=== PATIENT | male | born 1970 | race Caucasian/White ===

== ENCOUNTER 2017-11-17 12:53 | Emergency (ER) | payer MEDICAID ==
[2017-11-17 13:14] VITALS: BP 139/79
[2017-11-17] MEDS ORDERED: CLINDAMYCIN 150 MG CAPSULE PO STA (15:10)
[2017-11-17] MEDS ORDERED: BUPIVACAINE 0.5% PF 10 ML VIAL SUBQ STA (15:10)
--- NOTE | 2017-11-17 15:48 | ED Physician Documentation ---
PD HPI HEENT - Stated complaint Stated Complaint: MOUTH PX/FACIAL SWELLING - Chief complaint Chief Complaint: Heent - History obtained from History obtained from: Patient - History of Present Illness Timing - onset: How many days ago (3) Timing - details: Gradual onset, Still present Location: Tooth, Mouth Associated symptoms: Facial swelling. No: Fever Similar symptoms before: Work up / diagnostics, Treatment Recently seen: Not recently seen - Additional information Additional information: Patient is a 47 year old male with a history of multiple dental caries who is presenting to the emergency department for dental pain and facial swelling. Patient states that the symptoms have been going on for the last couple of days and have become progressively worse. Patient took ibuprofen for pain but it has not helped. Review of Systems Ten Systems: 10 systems reviewed and negative Constitutional: denies: Fever, Chills Throat: reports: Dental pain / toothache PD PAST MEDICAL HISTORY - Past Medical History Past Medical History: Yes Cardiovascular: Hypertension Respiratory: None Endocrine/Autoimmune: HyPOthyroidism GI: None : None HEENT: None, Chronic hearing loss Psych: None Musculoskeletal: None Derm: None - Past Surgical History Past Surgical History: Yes General: Appendectomy - Present Medications Home Medications: Ambulatory Orders Medication Instructions Recorded Confirmed Levothyroxine [Synthroid] 200 mcg PO DAILY 09/05/14 03/01/16 Chlorhexidine Gluconate 15 ml MM Q6HR #1 mouthwash 11/17/17 Clindamycin HCl [Clindamycin 300MG 300 mg PO Q6H 7 Days capsule 11/17/17 CAP] - Allergies Allergies/Adverse Reactions: Allergies Allergy/AdvReac Type Severity Reaction Status Date / Time No Known Drug Allergies Allergy Verified 11/17/17 13:14 - Social History Does the pt smoke?: Yes Smoking Status: Current every day smoker Does the pt drink ETOH?: No Does the pt have substance abuse?: No - Immunizations Immunizations are current?: Yes - POLST Patient has POLST: No PD ED PE NORMAL - Vitals Vital signs reviewed: Yes - General General: Alert and oriented X 3 - Neck Neck: Supple, no meningeal sign - Cardiac Cardiac: RRR - Respiratory Respiratory: No respiratory distress - Extremities Extremities: No deformity PD ED PE EXPANDED - General General: Alert, In Pain - HEENT HEENT: Dental decay, Dental TTP. No: Dental trauma, Dental abscess HEENT Visual: 1 - tenderness (tenderness but no drainable abscess or fluid collection) 2 - tenderness Results - Vitals Vitals: Vital Signs - 24 hr 11/17/17 13:08 Temperature 36.5 C Heart Rate 83 Respiratory 20 Rate Blood Pressure 139/79 H O2 Saturation 98 Oxygen O2 Source Room air Procedures - Regional nerve block Nerve block site: Post superior alveolar Right / left: Left Nerve block anesthesia: Marcaine 0.5% Nerve block aftercare: Excellent anesthesia, No complications PD MEDICAL DECISION MAKING - ED course Complexity details: reviewed old records, reviewed results, re-evaluated patient , considered differential, d/w patient ED course: patient was seen and examined at bedside. superior alveolar nerve block was performed with good relief. Patient was treated with clindamycin. Patient required no further work up and was stable for discharge with outpatient follow up. - Sepsis Event Vital Signs: Vital Signs - 24 hr 11/17/17 13:08 Temperature 36.5 C Heart Rate 83 Respiratory 20 Rate Blood Pressure 139/79 H O2 Saturation 98 Oxygen O2 Source Room air Departure - Departure Disposition: 01 Home, Self Care Clinical Impression: Dental abscess Condition: Good Instructions: ED Dental Abscess Facial Cellulitis Follow-Up: primary,care provider [Other] Prescriptions: Chlorhexidine Gluconate 15 ml MM Q6HR #1 mouthwash Clindamycin HCl [Clindamycin 300MG CAP] 300 mg PO Q6H 7 Days capsule Comments: Your symptoms today are being caused by dental abscess/infection. you will need to take an oral antibiotic and do an oral rinse 4 times a day. Ultimately you will need to follow up with your dentist to get your teeth pulled. You may return to the emergency department for worsening sympotms. you can take motrin 600mg and tylenol 1000mg as needed for pain.
== END 2017-11-17 15:59 | disposition home or self-care (01) ==
LOC: ED 12:53
DX: K04.7 Periapical abscess without sinus (principal); I10 Essential (primary) hypertension; E03.9 Hypothyroidism, unspecified; F17.200 Nicotine dependence, unspecified, uncomplicated
CPT/HCPCS: 64450; 99283; A9270

== ENCOUNTER 2018-11-03 05:35 | Emergency (ER) | payer MEDICAID ==
--- NOTE | 2018-11-03 05:38 | ED Physician Documentation ---
PD HPI CHEST PAIN - Stated complaint Stated Complaint: CHEST PAIN - History obtained from History obtained from: Patient, Family - History of Present Illness Timing - onset: Enter time (03:00), Today Timing - onset during: Sleep Timing - details: Abrupt onset, Constant, Waxing and waning Pain level max: 10 Pain level now: 10 Quality: Pain Location: Epigastric Radiation: Other (RUQ, back) Improved by: Nothing Worsened by: Other (no exacerbating factors) Associated symptoms: Diaphoresis. No: Shortness of air, Nausea, Vomiting Similar symptoms before: Diagnosis (similar to previous biliary colic, first (and only other) episode was few months ago, evaluated at [facility] ED and f/u outpatient with surgeon, was given option for surgery but recommended against surgery based on only first episode at the time) Recently seen: Not recently seen Review of Systems Constitutional: reports: Sweats. denies: Fever, Chills Cardiac: reports: Reviewed and negative Respiratory: reports: Reviewed and negative GI: reports: Abdominal Pain. denies: Abdominal Swelling, Nausea, Vomiting, Constipation, Diarrhea : denies: Dysuria, Frequency Musculoskeletal: denies: Back pain PD PAST MEDICAL HISTORY - Past Medical History Cardiovascular: Hypertension Respiratory: None Endocrine/Autoimmune: HyPOthyroidism GI: None : None HEENT: None, Chronic hearing loss Psych: None Musculoskeletal: None Derm: None - Past Surgical History Past Surgical History: Yes General: Appendectomy - Present Medications Home Medications: Ambulatory Orders Medication Instructions Recorded Confirmed Ibuprofen 600 mg PO Q6HR PRN #20 tablet 11/03/18 Levothyroxine Sodium 1 tab PO DAILY 11/03/18 11/03/18 Levothyroxine Sodium 1 tab PO DAILY 11/03/18 11/03/18 Oxycodone HCl/Acetaminophen 1 - 2 each PO Q6H PRN #14 tablet 11/03/18 [Percocet 5-325 mg Tablet] - Allergies Allergies/Adverse Reactions: Allergies Allergy/AdvReac Type Severity Reaction Status Date / Time No Known Drug Allergies Allergy Verified 11/03/18 05:44 - Social History Does the pt smoke?: Yes Smoking Status: Current every day smoker Does the pt drink ETOH?: No Does the pt have substance abuse?: No - Immunizations Immunizations are current?: Yes - POLST Patient has POLST: No PD ED PE NORMAL - Vitals Vital signs reviewed: Yes - General General: Alert and oriented X 3, Well developed/nourished, Other (obvious severe painful distress, diaphoretic) - HEENT HEENT: Moist mucous membranes - Cardiac Cardiac: RRR, No murmur - Respiratory Respiratory: No respiratory distress, Clear bilaterally - Abdomen Abdomen: Soft, Non distended, Other (mild TTP RUQ without rebound or guarding) - Derm Derm: Normal color, Warm and dry - Extremities Extremities: No edema Results - Vitals Vitals: Vital Signs - 24 hr 11/03/18 11/03/18 11/03/18 05:35 06:02 06:24 Temperature 36.9 C Heart Rate 99 91 86 Respiratory 14 12 14 Rate Blood Pressure 157/110 H 170/109 H 169/108 H Blood Pressure 157/110 H [Left] Blood Pressure 174/116 H [Right] O2 Saturation 100 100 11/03/18 11/03/18 06:51 08:01 Temperature 36.4 C L Heart Rate 93 98 Respiratory 22 16 Rate Blood Pressure 177/109 H 133/97 H Blood Pressure [Left] Blood Pressure [Right] O2 Saturation 98 95 Oxygen O2 Source Room air - Labs Labs: Laboratory Tests 11/03/18 11/03/18 11/03/18 05:49 05:49 05:49 WBC 10.4 RBC 4.53 L Hgb 13.6 L Hct 42.1 MCV 92.9 MCH 30.0 MCHC 32.3 RDW 13.7 Plt Count 236 MPV 9.7 Neut # (Auto) 7.4 H Lymph # (Auto) 1.8 [place] # (Auto) 0.9 Eos # (Auto) 0.2 Baso # (Auto) 0.0 Absolute Nucleated RBC 0.00 Nucleated RBC % 0.0 Sodium 138 Potassium 4.1 Chloride 104 Carbon Dioxide 24 Anion Gap 10.0 BUN 23 H Creatinine 1.1 Estimated GFR (MDRD) 71 L Glucose 138 H Calcium 9.3 Total Bilirubin 0.7 AST 46 H ALT 42 Alkaline Phosphatase 68 Troponin I < 0.04 Total Protein 7.3 Albumin 4.1 Globulin 3.2 Albumin/Globulin Ratio 1.3 Amylase 27 L Lipase 28 - Rads (name of study) RUQ US Radiology: Prelim report reviewed, See rad report PD MEDICAL DECISION MAKING - ED course Complexity details: reviewed results, re-evaluated patient, considered differential, d/w patient ED course: inadequate relief with 1mg IV Dilaudid, but complete symptom resolution with second dose 1mg dilaudid IV given with IV toradol. On reevaluation after US and serum tests resulted, patient is asleep, arousable to voice/tactile, reports excellent symptom relief and comfortable with d/c . ambulating without assistance at discharge. Departure - Departure Disposition: 01 Home, Self Care Clinical Impression: Biliary colic Condition: Good Health Concerns: abdominal pain, gallstones Plan of Treatment: follow up with general surgeon; pain medication prescription as directed Care Goals: resolution of symptoms Assessment: See diagnosis Instructions: ED Gallstone W Biliary Colic Follow-Up: Anderson Dias MD [Provider Admit Priv/Credential] - Prescriptions: Ibuprofen 600 mg PO Q6HR PRN #20 tablet PRN Reason: Pain Oxycodone HCl/Acetaminophen [Percocet 5-325 mg Tablet] 1 - 2 each PO Q6H PRN #14 tablet PRN Reason: pain Discharge Date/Time: 11/03/18 08:27
[2018-11-03] MEDS ORDERED: HYDROmorphone 1 MG/ML CARPUJECT IVP STA ×2 (05:56→06:23)
[2018-11-03] MEDS ORDERED: SODIUM CHLORIDE 0.9% 1,000 ML IV ONE (06:04)
[2018-11-03] MEDS ORDERED: SODIUM CHLORIDE 0.9% 1,000 ML IV STA (06:09)
[2018-11-03 06:15] LABS: BASOPHILS % (AUTO) 0.4 %; EOSINOPHILS # (AUTO) 0.2 10^3/uL (0.0-0.7); EOSINOPHILS % (AUTO) 2.3 %; HGB - HEMOGLOBIN 13.6 g/dL (14.0-18.0); LYMPHOCYTES # (AUTO) 1.8 10^3/uL (1.5-3.5); LYMPHOCYTES % (AUTO) 17.3 %; MEAN CORPUSCULAR HGB CONC 32.3 g/dL (32.0-36.0); MEAN CORPUSCULAR VOLUME 92.9 fL (80.0-94.0); MEAN PLATELET VOLUME 9.7 fL (7.4-11.4); MONOCYTES # (AUTO) 0.9 10^3/uL (0.0-1.0); MONOCYTES % (AUTO) 8.3 %; NEUTROPHILS # (AUTO) 7.4 10^3/uL (1.5-6.6); NEUTROPHILS % (AUTO) 71.5 %; PLT - PLATELET COUNT 236 10^3/uL (130-450); RED BLOOD COUNT 4.53 10^6/uL (4.70-6.10); RED CELL DISTRIBUTION WIDTH 13.7 % (12.0-15.0); WHITE BLOOD COUNT 10.4 x10^3/uL (4.8-10.8)
[2018-11-03] MEDS ORDERED: KETOROLAC 30 MG/ML VIAL IVP STA (06:23)
[2018-11-03 06:29] LABS: ALBUMIN 4.1 g/dL (3.2-5.5); ALBUMIN/GLOBULIN RATIO 1.3 (1.0-2.2); BILIRUBIN,TOTAL 0.7 mg/dL (0.2-1.0); CALCIUM 9.3 mg/dL (8.5-10.3); CREATININE 1.1 mg/dL (0.6-1.2); TOTAL PROTEIN 7.3 g/dL (6.7-8.2)
--- NOTE | 2018-11-03 06:30 | XRAY Report ---
Reason: cough, dyspnea Procedure Date: 11/03/2018 Accession Number: [id number] / [id number] Procedure: XR - Chest 2 View X-Ray CPT Code: 59378 FULL RESULT: EXAM: CHEST RADIOGRAPHY EXAM DATE: 11/03/2018 06:24 AM. CLINICAL HISTORY: Cough, dyspnea. COMPARISON: CHEST 2 VIEW PA/LAT 06/17/2013 7:10 AM. TECHNIQUE: 2 views. FINDINGS: Lungs/Pleura: No focal opacities evident. No pleural effusion. No pneumothorax. Normal volumes. Mediastinum: Heart and mediastinal contours are unremarkable. Other: None. IMPRESSION: Normal 2-view chest radiography. RADIA
--- NOTE | 2018-11-03 07:33 | Ultrasound Report ---
Reason: abd. pain Procedure Date: 11/03/2018 Accession Number: [id number] / [id number] Procedure: US - Abdomen Limited CPT Code: FULL RESULT: EXAM: ABDOMEN ULTRASOUND LIMITED, RUQ EXAM DATE: 11/03/2018 07:20 AM. CLINICAL HISTORY: Right upper quadrant pain. COMPARISON: None. TECHNIQUE: Real-time scanning was performed with static images obtained. FINDINGS: Liver: The liver is diffusely echogenic in appearance suggesting fibrofatty infiltration. No suspicious lesions or masses are identified. The liver measures 16.9 cm. Main portal vein flow: Hepatopetal. Gallbladder: A nonmobile gallstone is seen in the gallbladder neck region. Gallbladder is slightly distended and thick-walled in appearance. There is trace pericholecystic fluid. Sonographic Anthony sign is indeterminate as patient is medicated. Biliary System: CBD measures 5 mm. No intrahepatic or extrahepatic ductal dilatation. Other: Limited visualization of the right kidney demonstrates a few scattered cysts, largest measuring 6.3 cm in the lower pole. No hydronephrosis is seen. IMPRESSION: 1. Findings suspicious for cholecystitis with nonmobile gallstone in the gallbladder neck region, borderline gallbladder wall thickening, and trace pericholecystic fluid. No biliary dilation. 2. Fatty liver. 3. Left renal cyst. RADIA
[2018-11-03 08:05] VITALS: BP 133/97
== END 2018-11-03 08:27 | disposition home or self-care (01) ==
LOC: ED 05:35
DX: K80.20 Calculus of gallbladder without cholecystitis without obstruction (principal); K76.0 Fatty (change of) liver, not elsewhere classified; N28.1 Cyst of kidney, acquired; I10 Essential (primary) hypertension; F17.200 Nicotine dependence, unspecified, uncomplicated
CPT/HCPCS: 36415; 71046; 76705; 80053; 82150; 83690; 84484; 85025; 93005; 96374; 96375; 96376; 99283; 99284; J1170

== ENCOUNTER 2019-03-27 08:32 | Outpatient (CLI) | payer MEDICAID ==
[2019-03-27 09:52] LABS: THYROID STIMULATING HORMONE 0.91 uIU/mL (0.34-5.60)
[2019-03-27 09:54] LABS: FREE T4 (FREE THYROXINE) 1.13 ng/dL (0.58-1.64)
[2019-03-27 09:58] LABS: PROLACTIN 6.58 ng/mL
== END 2019-03-27 08:33 | disposition home or self-care (01) ==
LOC: LAB 08:32
PROVIDERS: ATTEND Internal Medicine Endocrinology, Diabetes & Metabolism
DX: E03.8 Other specified hypothyroidism (principal); D35.2 Benign neoplasm of pituitary gland; E29.1 Testicular hypofunction
CPT/HCPCS: 36415; 84146; 84403; 84439; 84443

== ENCOUNTER 2019-04-15 16:23 | Outpatient (CLI) | payer MEDICAID ==
[~2019-04-15 16:23] MED LIST: GADOBUTROL 15 MMOL/15 ML VIAL ONE
[2019-04-15] MEDS ORDERED: GADOBUTROL 15 MMOL/15 ML VIAL ONE (17:12)
[2019-04-15] MEDS ORDERED: GADOBUTROL 15 MMOL/15 ML VIAL IVP ONE (17:41)
--- NOTE | 2019-04-17 11:14 | MRI Report ---
Reason: PITUITARY ADENOMA Procedure Date: 04/15/2019 Accession Number: [id number] / [id number] Procedure: MRI - Brain W/WO CPT Code: Final Report FULL RESULT: EXAM: MRI BRAIN WITHOUT AND WITH CONTRAST EXAM DATE: 04/15/2019 06:03 PM. CLINICAL HISTORY: History of pituitary adenoma, follow-up requested. COMPARISON: PITUITARY W/WO 07/14/2013 3:49 PM PITUITARY 11/22/2006 12:16 PM. TECHNIQUE: Multiplanar, multisequence T1-weighted and fluid-sensitive MR sequences of the brain were performed before and after administration of intravenous contrast. Sequences optimized for brain and pituitary evaluation. Other: None. IV Contrast: Without and with 12 mL Gadavist. FINDINGS: Brain Volume: Normal for age. Parenchyma: No acute hemorrhage, mass, or infarct. 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 Otherwise, stable unremarkable appearance of the brain. Ventricles/Cisterns: No hydrocephalus. No abnormal extra-axial fluid collection or hemorrhage. Orbits: Symmetric and unremarkable. Sella Turcica: Stable appearance of the pituitary, sella and cavernous sinuses. No pituitary fossa hemorrhage or cystic change. Normal midline appearance of the infundibulum. Stable midline pituitary gland height of about 6 mm. Again seen at the posterior inferior aspect of the pituitary gland is a subtle region of relative hypoenhancement that is unchanged compared to the previous study, this is about 3 mm in width. The appearance is nonspecific, this may be physiologic asymmetry. Microadenoma is considered less likely but difficult to entirely rule out. There is no evidence for significant interval change or progressive pituitary region pathology. IAC: Symmetric and unremarkable. Vasculature: Normal signal flow void is seen in the major arterial structures at the skull base. The dural sinuses are patent and enhance normally. Sinuses: No acute sinus disease. Bones: No focal pathologic appearing marrow signal changes. Other: None. IMPRESSION: 1. No acute abnormality or significant change. 2. Stable unremarkable appearance of the brain. 3. Stable configuration of the pituitary gland as previously described. No evidence for new or progressive abnormality. Stable subtle 3 mm focus of fullness posteriorly and inferiorly which may be mildly hypoenhancing, pituitary microadenoma may have this appearance, but there is no evidence for interval progression if present. RADIA
== END 2019-04-15 16:24 | disposition home or self-care (01) ==
LOC: DI 16:23
PROVIDERS: ATTEND Internal Medicine Endocrinology, Diabetes & Metabolism
DX: D35.2 Benign neoplasm of pituitary gland (principal)
CPT/HCPCS: 70553; A9585

== ENCOUNTER 2019-06-08 19:31 | Emergency (ER) | payer OTHER, MEDICAID ==
[2019-06-08] MEDS ORDERED: HYDROcod/ACETAM 5/325 MG TABLET PO STA (19:39)
[2019-06-08] MEDS ORDERED: HYDROmorphone 1 MG/ML CARPUJECT IM STA (19:40)
[2019-06-08] MEDS ORDERED: KETOROLAC 60 MG/2 ML VIAL IM STA (19:40)
--- NOTE | 2019-06-08 19:43 | ED Physician Documentation ---
History of Present Illness - Stated complaint Stated Complaint: FIT FOR CONFINEMENT - Chief complaint Chief Complaint: General - History obtained from History obtained from: Patient - History of Present Illness Timing: Today (Brought in by [place] [employer] for acute right upper quadrant pain that started tonight. He is under arrest. He has had 2 episodes of biliary colic in the past and saw surgeon and at that time had only had one episode of biliary colic so watchful waiting was advised.) Review of Systems Ten Systems: 10 systems reviewed and negative Constitutional: denies: Fever, Chills Nose: denies: Rhinorrhea / runny nose Throat: denies: Sore throat Cardiac: denies: Chest pain / pressure, Palpitations Respiratory: denies: Dyspnea, Cough PD PAST MEDICAL HISTORY - Past Medical History Past Medical History: Yes Cardiovascular: Hypertension Respiratory: None Endocrine/Autoimmune: HyPOthyroidism GI: None : None HEENT: None, Chronic hearing loss Psych: None Musculoskeletal: None Derm: None - Past Surgical History Past Surgical History: Yes General: Appendectomy - Present Medications Home Medications: Ambulatory Orders Medication Instructions Recorded Confirmed Levothyroxine Sodium 1 tab PO DAILY 11/03/18 06/08/19 - Allergies Allergies/Adverse Reactions: Allergies Allergy/AdvReac Type Severity Reaction Status Date / Time No Known Drug Allergies Allergy Verified 06/08/19 19:42 - Social History Does the pt smoke?: Yes Smoking Status: Current every day smoker Does the pt drink ETOH?: No Does the pt have substance abuse?: No - Immunizations Immunizations are current?: Yes - POLST Patient has POLST: No PD ED PE NORMAL - Vitals Vital signs reviewed: Yes - General General: Alert and oriented X 3, Other (He appears uncomfortable) - HEENT HEENT: PERRL, EOMI - Neck Neck: Supple, no meningeal sign, No bony TTP - Cardiac Cardiac: RRR, No murmur - Respiratory Respiratory: No respiratory distress, Clear bilaterally - Abdomen Abdomen: Other (Mild tenderness in the right upper quadrant without surgical signs) - Back Back: No CVA TTP, No spinal TTP - Derm Derm: Normal color, Warm and dry - Extremities Extremities: No edema, No calf tenderness / cord - Neuro Neuro: Alert and oriented X 3, Normal speech Results - Vitals Vitals: Vital Signs - 24 hr 06/08/19 06/08/19 19:35 20:30 Temperature 36.4 C L Heart Rate 110 H 102 H Respiratory 20 18 Rate Blood Pressure 164/114 H 187/109 H O2 Saturation 99 96 Oxygen O2 Source Room air - Labs Labs: Laboratory Tests 06/08/19 06/08/19 19:49 19:49 WBC 7.8 RBC 4.77 Hgb 14.8 Hct 45.5 MCV 95.4 H MCH 31.0 MCHC 32.5 RDW 13.7 Plt Count 272 MPV 9.6 Neut # (Auto) 4.9 Lymph # (Auto) 2.1 [place] # (Auto) 0.6 Eos # (Auto) 0.1 Baso # (Auto) 0.1 Absolute Nucleated RBC 0.00 Nucleated RBC % 0.0 Sodium 140 Potassium 4.0 Chloride 104 Carbon Dioxide 24 Anion Gap 12.0 BUN 15 Creatinine 1.2 Estimated GFR (MDRD) 65 L Glucose 110 H Calcium 9.5 Total Bilirubin 0.8 AST 44 H ALT 52 Alkaline Phosphatase 60 Total Protein 7.8 Albumin 4.5 Globulin 3.3 Albumin/Globulin Ratio 1.4 Lipase 26 - Rads (name of study) RUQ sono Radiology: EMP read contemporaneously (Unchanged from prior with stone in the neck, but no secondary signs of cholecystitis such as wall thickening or pericholecystic fluid.) PD MEDICAL DECISION MAKING - ED course ED course: 48-year-old gentleman with known gallstones presents with an attack of biliary colic. We were able to manage his pain here. Ultrasound unchanged from prior. No urgency to the surgery from my perspective but will need an of elective cholecystectomy eventually. He is in police custody right now, and I notified nurse practitioner Brianda at the senior care and she will follow-up. Departure - Departure Disposition: 01 Home, Self Care Clinical Impression: Biliary colic Condition: Good Record reviewed to determine appropriate education?: Yes Instructions: ED Gallstone W Biliary Colic Follow-Up: Floresita Noriega MD [Provider Admit Priv/Credential] - Comments: I spoke with the senior care nurse practitioner. He will need to follow-up with a surgeon, one is listed on this form. Return for new or worsening symptoms.
[2019-06-08 19:52] LABS: BASOPHILS # (AUTO) 0.1 10^3/uL (0.0-0.1); BASOPHILS % (AUTO) 0.6 %; EOSINOPHILS # (AUTO) 0.1 10^3/uL (0.0-0.7); EOSINOPHILS % (AUTO) 1.4 %; HGB - HEMOGLOBIN 14.8 g/dL (14.0-18.0); LYMPHOCYTES # (AUTO) 2.1 10^3/uL (1.5-3.5); LYMPHOCYTES % (AUTO) 26.6 %; MEAN CORPUSCULAR HGB CONC 32.5 g/dL (32.0-36.0); MEAN CORPUSCULAR VOLUME 95.4 fL (80.0-94.0); MEAN PLATELET VOLUME 9.6 fL (7.4-11.4); MONOCYTES # (AUTO) 0.6 10^3/uL (0.0-1.0); NEUTROPHILS # (AUTO) 4.9 10^3/uL (1.5-6.6); NEUTROPHILS % (AUTO) 63.1 %; PLT - PLATELET COUNT 272 10^3/uL (130-450); RED BLOOD COUNT 4.77 10^6/uL (4.70-6.10); RED CELL DISTRIBUTION WIDTH 13.7 % (12.0-15.0); WHITE BLOOD COUNT 7.8 x10^3/uL (4.8-10.8)
[2019-06-08 20:06] LABS: ALBUMIN 4.5 g/dL (3.2-5.5); ALBUMIN/GLOBULIN RATIO 1.4 (1.0-2.2); BILIRUBIN,TOTAL 0.8 mg/dL (0.2-1.0); CALCIUM 9.5 mg/dL (8.5-10.3); CREATININE 1.2 mg/dL (0.6-1.2); TOTAL PROTEIN 7.8 g/dL (6.7-8.2)
[2019-06-08] MEDS ORDERED: oxyCODONE 5 MG TABLET PO STA (20:30)
--- NOTE | 2019-06-08 21:04 | Ultrasound Report ---
Reason: RUQ pain Procedure Date: 06/08/2019 Accession Number: [id number] / [id number] Procedure: US - Abdomen Limited CPT Code: Final Report FULL RESULT: EXAM: ABDOMEN ULTRASOUND LIMITED, RUQ EXAM DATE: 06/08/2019 08:38 PM. CLINICAL HISTORY: RUQ pain. COMPARISON: ABDOMEN LIMITED 11/03/2018 6:25 AM. TECHNIQUE: Real-time scanning was performed with static images obtained. FINDINGS: Liver: The liver parenchyma is diffusely echogenic. There is an incidental cyst in the right lobe measuring 0.9 x 0.8 cm. 17.2 cm. Main portal vein flow: Hepatopetal. Gallbladder: There is a stone in the neck of the gallbladder measuring 1.5 cm in diameter. Gallbladder wall thickness upper normal at 2.8 mm. Dandy Operator reports positive ultrasound Anthony's sign. Biliary System: CBD measures 4 mm. No intrahepatic or extrahepatic ductal dilatation. Other: Right kidney measures 14.7 cm in length. There is no hydronephrosis. There is a lower pole cyst measuring 5.6 x 3.9 cm. IMPRESSION: 1. Gallstone in gallbladder with upper normal to borderline gallbladder wall thickness, unchanged since 11/03/2018. A positive ultrasound Anthony sign is reported, previously indeterminant. An ultrasound Anthony sign is associated with cholecystitis. 2. No biliary dilatation. 3. Steatosis of the liver. RADIA
[2019-06-08 21:16] VITALS: BP 166/97
== END 2019-06-08 21:20 | disposition home or self-care (01) ==
LOC: ED 19:31
DX: K80.20 Calculus of gallbladder without cholecystitis without obstruction (principal); K76.0 Fatty (change of) liver, not elsewhere classified; I10 Essential (primary) hypertension; F17.200 Nicotine dependence, unspecified, uncomplicated
CPT/HCPCS: 36415; 76705; 80053; 83690; 85025; 96372; 99283; 99284; A9270; J1170

== ENCOUNTER 2020-05-15 11:34 | Emergency (ER) | payer OTHER, MEDICAID ==
[2020-05-15] MEDS ORDERED: SODIUM CHLORIDE 0.9% 1,000 ML IV STA (12:10)
[2020-05-15] MEDS ORDERED: HYDROmorphone 1 MG/ML CARPUJECT IVP STA (12:10)
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
--- NOTE | 2020-05-15 12:40 | XRAY Report ---
PROCEDURE: Chest 1 View X-Ray INDICATIONS: chest pain TECHNIQUE: One view of the chest was acquired. COMPARISON: 11/03/2018 FINDINGS: Surgical changes and devices: None. Lungs and pleura: No pleural effusions or pneumothorax. Lungs are clear. Mediastinum: Mediastinal contours appear normal. Heart size is normal. Bones and chest wall: No suspicious bony lesions. Overlying soft tissues appear unremarkable. IMPRESSION: No evidence acute pulmonary process. Reviewed by: Chris Abel MD on 05/15/2020 12:39 PM [facility] Approved by: Chris Abel MD on 05/15/2020 12:39 PM [facility] Station ID: [id number]
[2020-05-15 12:59] LABS: BASOPHILS % (AUTO) 0.5 %; EOSINOPHILS # (AUTO) 0.2 10^3/uL (0.0-0.7); HCT - HEMATOCRIT 43.1 % (42.0-52.0); HGB - HEMOGLOBIN 14.5 g/dL (14.0-18.0); LYMPHOCYTES # (AUTO) 2.2 10^3/uL (1.5-3.5); LYMPHOCYTES % (AUTO) 28.7 %; MEAN CORPUSCULAR HEMOGLOBIN 30.5 pg (27.0-31.0); MEAN CORPUSCULAR HGB CONC 33.6 g/dL (32.0-36.0); MEAN CORPUSCULAR VOLUME 90.5 fL (80.0-94.0); MEAN PLATELET VOLUME 9.2 fL (7.4-11.4); MONOCYTES # (AUTO) 0.6 10^3/uL (0.0-1.0); MONOCYTES % (AUTO) 8.4 %; NEUTROPHILS # (AUTO) 4.6 10^3/uL (1.5-6.6); NEUTROPHILS % (AUTO) 59.7 %; PLT - PLATELET COUNT 279 10^3/uL (130-450); RED BLOOD COUNT 4.76 10^6/uL (4.70-6.10); RED CELL DISTRIBUTION WIDTH 13.4 % (12.0-15.0); WHITE BLOOD COUNT 7.6 x10^3/uL (4.8-10.8)
[2020-05-15 13:20] LABS: ALBUMIN 4.5 g/dL (3.2-5.5); ALBUMIN/GLOBULIN RATIO 1.5 (1.0-2.2); BILIRUBIN,TOTAL 0.4 mg/dL (0.2-1.0); CALCIUM 9.4 mg/dL (8.5-10.3); CREATININE 1.1 mg/dL (0.6-1.2); CRP - C-REACTIVE PROTEIN 1.2 mg/dL (0-1.0); TOTAL PROTEIN 7.5 g/dL (6.7-8.2)
[2020-05-15 13:51] VITALS: BP 147/101
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
== END 2020-05-15 14:18 | disposition home or self-care (01) ==
LOC: ED 11:34
DX: M54.6 Pain in thoracic spine (principal); I10 Essential (primary) hypertension; F17.200 Nicotine dependence, unspecified, uncomplicated
CPT/HCPCS: 36415; 71045; 72072; 80053; 83690; 84484; 85025; 85379; 86140; 93005; 96374; 99284; J1170